=== PATIENT | male | born 1955 | race Caucasian/White ===

== ENCOUNTER 2016-11-15 18:44 | Inpatient (IN) | payer BC ==
[~2016-11-15] VITALS: Ht 172.7 cm; Wt 113.0 kg
[~2016-11-15 18:44] MED LIST: ASPEC325 PO; DOCU100T7 PO; FAMO20TA11 PO; FOSI20TA2 PO; HYDR25TA4 PO; MAGNSUS5 PO; NAPR1TAB9 PO; POTASSIUM PO; RXC5 PO
[2016-11-15] MEDS ORDERED: SODIUM CHLORIDE 0.9% 1000ML 1,000 ML IV STA ×2 (19:09→19:10)
[2016-11-15 20:03] LABS: BASO % 0.1 %; BASO ABS # 0.01 K/uL (0-0.2); COMPLETE YES; HEMATOCRIT 42.4 % (42-52); IG% 1.4 %; LYMPH % 3.2 %; LYMPH ABS # 0.37 K/uL (1.2-3.4); MEAN CORPUSCULAR HEMOGLOBIN 29.7 pg (25-34); MEAN CORPUSCULAR HGB CONC 35.4 g/dl (32-36); MONO % 4.9 %; NEUT % 90.4 %; PLATELET COUNT 106 K/uL (130-400); RED BLOOD COUNT 5.05 M/uL (4.7-6.1)
[2016-11-15 20:07] LABS: ISTAT CREATININE 1.3 mg/dl (0.6-1.3); ISTAT HEMOGLOBIN 14.3 g/dl (14.0-18.0); ISTAT IONIZED CALCIUM 1.09 mmol/l (1.12-1.32)
[2016-11-15] MEDS ORDERED: CEFTRIAXONE SOD INJ 1 GM ADDVIAL IV STA (20:08)
[2016-11-15] MEDS ORDERED: HYDROmorphone INJ 1 MG/ML SYR IV STA (20:09)
[2016-11-15 20:16] LABS: INR 1.2 (0.9-1.1); PROTHROMBIN TIME (PATIENT) 13.4 SECONDS (9.0-12.0)
[2016-11-15 20:20] LABS: BUN/CREATININE RATIO 23.5 (10-20); CALCIUM 8.7 mg/dl (8.5-10.1); CREATININE 1.3 mg/dl (0.60-1.40); MAGNESIUM 2.4 mg/dl (1.8-2.4); POTASSIUM 3.1 mmol/L (3.5-5.1)
--- NOTE | 2016-11-15 20:20 | DIAGNOSTIC IMAGING REPORT ---
CHEST ONE VIEW PORTABLE CLINICAL HISTORY: fever COMPARISON STUDY: No previous studies for comparison. FINDINGS: The heart is borderline enlarged. There are postsurgical changes of a midline sternotomy. There is no focal pulmonary consolidation. There is no failure. There are no pleural effusions. There are minor left basilar atelectatic changes.[ IMPRESSION: No active disease in the chest. Electronically signed by: Ned Mock M.D. 11/15/2016 8:18 PM Dictated Date/Time: 11/15/2016 8:18 PM
[2016-11-15 20:31] LABS: URINE APPEARANCE CLOUDY (CLEAR); URINE BILIRUBIN NEG (NEG); URINE COLOR DK YELLOW; URINE NITRITE POS (NEG); URINE SPECIFIC GRAVITY 1.019 (1.000-1.030); UROBILINOGEN NEG (NEG); ZZUR CULT IF INDIC CLEAN CATCH YES
[2016-11-15 20:33] LABS: MANUAL MICROSCOPIC REQUIRED? NO; REVIEW REQ? YES
[2016-11-15 20:45] LABS: URINE PATH CASTS 1-5 GRANULAR CASTS /lpf (0)
[2016-11-15 20:45] LABS: CKMB/CK RATIO 0.2 (0-3.0)
[2016-11-15] MEDS ORDERED: POTASSIUM CHLORIDE 10 MEQ TABCR PO STA (21:36)
--- NOTE | 2016-11-15 22:39 | EMERGENCY ROOM VISIT NOTE ---
History Report prepared by Maria Elena: Saima James Under the Supervision of: Dr. Lucian Mckeon D.O. First contact with patient: 19:02 Chief Complaint: URINARY SYMPTOMS Stated Complaint: UTI,SIGNS OF BLOOD INFEC,CHIUS,CONFUSION,VOMIT History of Present Illness The patient is a 61 year old male who presents to the Emergency Room with complaints of worsening urinary symptoms that started 2 days ago. The patient states that he got home from work 2 days ago and began to experience hematuria and burning with urination. He began to bleed from his penis and he had to wear a pad overnight. The pad was filled overnight. Currently, he is unable to start a stream and when he tries to go "it just drips." The patient experiences worsening lower abdominal pain when he tries to urinate, but nothing will come out. The last time the patient was able to urinate was around 1730 tonight, but he was only able to void a small amount. The patient's states that the patient was very confused prior to coming into the ED and couldn't find his jacket. He also tried going out of the wrong door when trying to get to the car. The patient states that he developed a low-grade fever two days ago, along with generalized shaking and sweating. He states that none of his fevers have been over 100.4. He is also experiencing a headache, nausea, and vomiting. The patient denies rhinorrhea, a new cough, chest pain, and shortness of breath. He also denies any recent trauma. The patient's most recent bowel movement was today and it was normal. Source of History: patient Onset: two days ago Position: other (bladder/urinary tract) Quality: other (urinary symptoms) Timing: worsening Associated Symptoms: + abdominal pain (lower, with urination), + fevers, + headache, + nausea, + vomiting, No SOB, No chest pain, No cough Note: generalized shaking, sweating, no rhinorrhea Review of Systems See HPI for pertinent positives & negatives. A total of 10 systems reviewed and were otherwise negative. Past Medical & Surgical Medical Problems: (1) CAD (coronary artery disease) (2) Hypertension (3) Pneumonia Surgical Problems: (1) History of lumbar discectomy (2) History of orthopedic surgery (3) History of sinus surgery (4) S/P CABG x 5 (5) Status post herniorrhaphy Family History FH: cancer FH: diabetes mellitus FH: gallbladder disease FH: heart disease FH: hypertension Social History Smoking Status: Never Smoker Alcohol Use: none Marital Status: Occupation Status: employed Current/Historical Medications Scheduled Aspirin (Aspirin), 1 TAB PO DAILY Fosinopril Sodium (Monopril), 20 MG PO QPM Hydrochlorothiazide (Hctz), 25 MG PO HS Magnesium Hydroxide (Milk Of Magnesia), 5 ML PO PRN [Potassium], 99 MG PO HS Scheduled PRN Docusate Sodium (Stool Softener), 100 MG PO QAM PRN for PRN Famotidine (Pepcid), 20 MG PO DAILY PRN for Indigestion Naproxen (Aleve), 220 MG PO QPM PRN for Pain Oxycodone HCl (Oxycodone HCl), 5-10 MG PO Q4H PRN for prn Allergies Coded Allergies: Acetaminophen (Verified Allergy, Severe, seizes bronchial tubes, 05/17/15) Adhesives (Verified Allergy, Unknown, SKIN COMES OFF, 11/15/16) Clopidogrel (Verified Allergy, Unknown, PROBLEMS WITH KNEES, SHAKEY, ) Statins (Verified Allergy, Unknown, nodules on heart, 11/15/16) Physical Exam Vital Signs Date Time Temp Pulse Resp B/P Pulse Ox O2 Delivery O2 Flow Rate FiO2 11/15/16 22:24 86 16 104/72 99 11/15/16 20:35 98 15 103/65 96 Room Air 11/15/16 19:37 97 Room Air 11/15/16 19:34 114 11/15/16 18:56 37.7 128 20 110/70 94 Room Air Physical Exam GENERAL: alert, sitting up in bed, disheveled, well appearing, well nourished, mild distress, non-toxic EYE EXAM: normal conjunctiva OROPHARYNX: no exudate, no erythema, lips, buccal mucosa, and tongue normal and mucous membranes are moist NECK: supple, no nuchal rigidity, no adenopathy, non-tender LUNGS: Clear to auscultation. Normal chest wall mechanics HEART: Tachycardic rate, no murmurs, S1 normal and S2 normal ABDOMEN: abdomen soft, non-tender, normo-active bowel sounds, no masses, no rebound or guarding. BACK: Back is symmetrical on inspection and there is no deformity, no midline tenderness, no CVA tenderness. SKIN: no rashes and no bruising UPPER EXTREMITIES: upper extremities are grossly normal. LOWER EXTREMITIES: No pitting edema. : Normal circumcised penis, testicles nontender, no appreciable masses, no penial discharge. NEURO EXAM: Normal sensorium, cranial nerves II-XII grossly intact, normal speech, no gross weakness of arms, no gross weakness of legs. Medical Decision & Procedures ER Provider Diagnostic Interpretation: Xray results per the radiologist and my interpretation. CHEST ONE VIEW PORTABLE IMPRESSION: No active disease in the chest. Electronically signed by: Ned Mock M.D. 11/15/2016 8:18 PM Dictated Date/Time: 11/15/2016 8:18 PM Laboratory Results 11/15/16 19:35 Red Blood Count 5.05, Mean Corpuscular Volume 84.0, Mean Corpuscular Hemoglobin 29.7, Mean Corpuscular Hemoglobin Concent 35.4, Mean Platelet Volume 10.0, Neutrophils (%) (Auto) 90.4, Lymphocytes (%) (Auto) 3.2, Monocytes (%) (Auto) 4.9, Eosinophils (%) (Auto) 0.0, Basophils (%) (Auto) 0.1, Neutrophils # (Auto) 10.40, Lymphocytes # (Auto) 0.37, Monocytes # (Auto) 0.56, Eosinophils # (Auto) 0.00, Basophils # (Auto) 0.01 11/15/16 19:35 Test 11/15/16 19:35 11/15/16 19:45 11/15/16 19:49 11/15/16 20:00 White Blood Count 11.50 K/uL (4.8-10.8) Red Blood Count 5.05 M/uL (4.7-6.1) Hemoglobin 15.0 g/dL (14.0-18.0) Hematocrit 42.4 % (42-52) Mean Corpuscular Volume 84.0 fL (80-100) Mean Corpuscular Hemoglobin 29.7 pg (25-34) Mean Corpuscular Hemoglobin Concent 35.4 g/dl (32-36) Platelet Count 106 K/uL (130-400) Mean Platelet Volume 10.0 fL (7.4-10.4) Neutrophils (%) (Auto) 90.4 % Lymphocytes (%) (Auto) 3.2 % Monocytes (%) (Auto) 4.9 % Eosinophils (%) (Auto) 0.0 % Basophils (%) (Auto) 0.1 % Neutrophils # (Auto) 10.40 K/uL (1.4-6.5) Lymphocytes # (Auto) 0.37 K/uL (1.2-3.4) Monocytes # (Auto) 0.56 K/uL (0.11-0.59) Eosinophils # (Auto) 0.00 K/uL (0-0.5) Basophils # (Auto) 0.01 K/uL (0-0.2) RDW Standard Deviation 45.8 fL (36.4-46.3) RDW Coefficient of Variation 14.9 % (11.5-14.5) Immature Granulocyte % (Auto) 1.4 % Immature Granulocyte # (Auto) 0.16 K/uL (0.00-0.02) Prothrombin Time 13.4 SECONDS (9.0-12.0) Prothromb Time International Ratio 1.2 (0.9-1.1) Est Creatinine Clear Calc Drug Dose 73.4 ml/min Estimated GFR () 68.3 Estimated GFR (Non- 58.9 BUN/Creatinine Ratio 23.5 (10-20) Calcium Level 8.7 mg/dl (8.5-10.1) Magnesium Level 2.4 mg/dl (1.8-2.4) Total Bilirubin 0.6 mg/dl (0.2-1) Direct Bilirubin 0.1 mg/dl (0-0.2) Aspartate Amino Transf (AST/SGOT) 57 U/L (15-37) Alanine Aminotransferase (ALT/SGPT) 33 U/L (12-78) Alkaline Phosphatase 90 U/L (45-117) Total Creatine Kinase 1611 U/L (39-308) Creatine Kinase MB 2.5 ng/ml (0.5-3.6) Creatine Kinase MB Ratio 0.2 (0-3.0) Troponin I 0.080 ng/ml (0-0.045) Total Protein 6.5 gm/dl (6.4-8.2) Albumin 3.0 gm/dl (3.4-5.0) Bedside Lactic Acid Venous 3.31 mmol/L (0.90-1.70) Bedside Hemoglobin 14.3 g/dl (14.0-18.0) Bedside Hematocrit 42 % (42-52) Bedside Sodium 137 mEq/L (135-144) Bedside Potassium 3.0 mEq/L (3.3-5.0) Bedside Chloride 96 mEq/L (101-112) Bedside Total CO2 23 mEq/l (24-31) Anion Gap 21.0 mmol/L (16-25) Bedside Blood Urea Nitrogen 29 mg/dl (7-18) Bedside Creatinine 1.3 mg/dl (0.6-1.3) Bedside Glucose (other) 155 mg/dl (70-99) Bedside Ionized Calcium (Meño) 1.09 mmol/l (1.12-1.32) Urine Color DK YELLOW Urine Appearance CLOUDY (CLEAR) Urine pH 5.0 (4.5-7.5) Urine Specific [place] 1.019 (1.000-1.030) Urine Protein 2+ (NEG) Urine Glucose (UA) NEG (NEG) Urine Ketones TRACE (NEG) Urine Occult Blood 3+ (NEG) Urine Nitrite POS (NEG) Urine Bilirubin NEG (NEG) Urine Urobilinogen NEG (NEG) Urine Leukocyte Esterase MODERATE (NEG) Urine WBC (Auto) >30 /hpf (0-5) Urine RBC (Auto) 5-10 /hpf (0-4) Urine Hyaline Casts (Auto) 1-5 /lpf (0-5) Urine Epithelial Cells (Auto) 10-20 /lpf (0-5) Urine Bacteria (Auto) 4+ (NEG) Urine Pathogenic Casts 1-5 GRANULAR CASTS /lpf (0) Laboratory results per my review. Medications Administered Medications (Trade) Dose Ordered Sig/[place] Route Start Time Stop Time Status Last Admin Dose Admin Sodium Chloride 1,000 ml @ 999 mls/hr Q1H1M STAT IV 11/15/16 19:09 11/15/16 20:09 DC 11/15/16 20:09 999 MLS/HR Sodium Chloride (Nss 1000ml) 1,000 ml @ 999 mls/hr Q1H1M STAT IV 11/15/16 19:10 11/15/16 20:10 DC 11/15/16 20:30 999 MLS/HR Ceftriaxone Sodium (Rocephin Inj) 1 gm NOW STAT IV 11/15/16 20:08 11/15/16 20:09 DC 11/15/16 20:30 1 GM Hydromorphone HCl (Dilaudid Inj) 1 mg NOW STAT IV 11/15/16 20:09 11/15/16 20:10 DC 11/15/16 20:30 1 MG Potassium Chloride (Klor-Con M10) 40 meq NOW STAT PO 11/15/16 21:36 11/15/16 21:37 DC 11/15/16 21:57 40 MEQ ECG Indication: nausea, tachycardia Rate (beats per minute): 114 Rhythm: sinus tachycardia Findings: RBBB, left axis deviation ED Course ED COURSE: Vital signs were reviewed and showed tachycardia. The patients medical record was reviewed The above diagnostic studies were performed and reviewed. ED treatments and interventions as stated above. 1902: The patient was evaluated in room A4. A complete history and physical examination was performed. 1908: Ordered Sodium Chloride 1000 ml @ 999 mls/hr IV 1909: Ordered Sodium Chloride 1000 ml @ 999 mls/hr IV 2007: Ordered Rocephin Inj 1 gm IV 2008: Ordered Dilaudid 1 mg IV 2049: Upon reevaluation, the patient is resting comfortably. I discussed my findings with the patient and his . They understand and agree with the treatment plan. Based on the patients age, coexisting illnesses, exam and lab findings the decision to treat as an inpatient was made. The patient remained stable while under my care. The patient will be evaluated for further management. 2133: I reviewed the patient's case with Dr. Kaleb Panchal [facility]. He will evaluate the patient for further management. 2135: Ordered Potassium Chloride 40 meq PO Medical Decision Differential diagnosis includes etiologies such as sepsis, UTI, pneumonia, metabolic, electrolyte abnormalities, cardiac sources, intracerebral event, toxicologic, neurologic, as well as others were entertained. Patient is a 61-year-old male who presents the ER for fevers, chills and altered mental status at home. He notes he has been having dysuria, urgency and frequency. He notes extreme pain with urination. Mild leukocytosis of 11.5 thousand. BMP was remarkable for a potassium of 3.1. Creatinine was unremarkable. Lactate was 3.3. Troponin was elevated at 0.08. INR was unremarkable. UA had nitrates esterase, white cells and bacteria. Based on symptoms he is given a dose of Rocephin. He was given 2 L normal saline. He was also given Dilaudid with improvement of his pain. Patient no other complaints and was noted to internal medicine with sepsis secondary to UTI. I do favor the elevations in troponin is likely secondary to demand ischemia from sepsis. Heart rate returned down from the 120s to 90s following the bolus normal saline. Consults Time Called: 2052 Consulting Physician: Dr. Kaleb MEZA Returned Call: [phone] I reviewed the patient's case with Dr. Kaleb MEZA. He will evaluate the patient for further management. Impression Primary Impression: Sepsis Additional Impressions: UTI (urinary tract infection) Hypokalemia Elevated troponin I level Scribe Attestation The scribe's documentation has been prepared under my direction and personally reviewed by me in its entirety. I confirm that the note above accurately reflects all work, treatment, procedures, and medical decision making performed by me. Departure Information Dispostion Being Evaluated By Hospitalist Referrals Nory Church M.D. (PCP) Patient Instructions My [facility] Problem Qualifiers Primary Impression: Sepsis Sepsis type: sepsis due to unspecified organism Qualified Codes: A41.9 - Sepsis, unspecified organism Additional Impressions: UTI (urinary tract infection) Urinary tract infection type: site unspecified Hematuria presence: with hematuria Qualified Codes: N39.0 - Urinary tract infection, site not specified ; R31.9 - Hematuria, unspecified
[2016-11-15] MEDS ORDERED: HYDROmorphone INJ 1 MG/ML SYR IV PRN (22:45)
[2016-11-15] MEDS ORDERED: ZOLPIDEM TARTRATE 5 MG TAB PO PRN (22:45)
[2016-11-15] MEDS ORDERED: ONDANSETRON INJ 2 MG/ML 2 ML VIAL IV PRN (22:45)
[2016-11-15] MEDS ORDERED: HYDROmorphone INJ 0.5 MG/0.5 ML SYR IV PRN (22:45)
[2016-11-15 23:30] VITALS: BP 111/70; PULSE 79; TEMP 36.9; O2SAT 99; Ht 172.7 cm; Wt 113.0 kg
[2016-11-16 00:09] LABS: CKMB/CK RATIO 0.2 (0-3.0)
[2016-11-16] MEDS ORDERED: NSS + 20MEQ KCL 1000ML 1,000 ML IV SCH (01:30)
[2016-11-16] MEDS ORDERED: TAMSULOSIN HCL 0.4 MG CAP PO STA (03:43)
--- NOTE | 2016-11-16 03:49 | History and Physical ---
History & Physical Date & Time of Service: Nov 16, 2016 at 03:28 Chief Complaint: Bph With Obstruction/Lower Urinary Tract Symptoms, Primary Care Physician: Nory Church M.D. History of Present Illness Source: patient, spouse Patient is a 61-year-old male presents to the emergency department with complaint of increased urinary frequency, urinating blood, decreased volume of urination, and worsening pelvic and suprapubic pain over the past 48 hours. He reported that he has had flu overnight. His reports that the patient had become very confused earlier in the day, not being able to find his jacket, and going out the wrong door trying to get to the car. His symptoms began 48 hours ago with a low-grade fever to max 100.4, generalized shaking, chills and sweating. He more recently developed a headache with nausea and vomiting. He has not had any recent travels, and has not had any sick exposures. He does drink 2 servings of caffeine daily and takes a decongestant daily. He does not have a history of kidney stones nor family history Past Medical/Surgical History Medical Problems: (1) CAD (coronary artery disease) Status: Chronic (2) Hypertension Status: Chronic (3) Pneumonia Status: Resolved Surgical Problems: (1) History of lumbar discectomy Status: Resolved (2) History of orthopedic surgery Status: Resolved (3) History of sinus surgery Status: Resolved (4) S/P CABG x 5 Status: Resolved (5) Status post herniorrhaphy Status: Resolved Family History FH: cancer FH: diabetes mellitus FH: gallbladder disease FH: heart disease FH: hypertension Social History Smoking Status: Never Smoker Smokeless Tobacco Use: No Alcohol Use: none Drug Use: none Marital Status: Housing status: lives with family Occupational Status: employed Multi-Drug Resistant Organisms History of MDRO: No Allergies Coded Allergies: Acetaminophen (Verified Allergy, Severe, seizes bronchial tubes, 05/17/15) Adhesives (Verified Allergy, Unknown, SKIN COMES OFF, 11/15/16) Clopidogrel (Verified Allergy, Unknown, PROBLEMS WITH KNEES, SHAKEY, ) Statins (Verified Allergy, Unknown, nodules on heart, 11/15/16) Home Medications Scheduled Aspirin (Aspirin), 1 TAB PO DAILY Fosinopril Sodium (Monopril), 20 MG PO QPM Hydrochlorothiazide (Hctz), 25 MG PO HS Magnesium Hydroxide (Milk Of Magnesia), 5 ML PO PRN [Potassium], 99 MG PO HS Scheduled PRN Docusate Sodium (Stool Softener), 100 MG PO QAM PRN for PRN Famotidine (Pepcid), 20 MG PO DAILY PRN for Indigestion Naproxen (Aleve), 220 MG PO QPM PRN for Pain Oxycodone HCl (Oxycodone HCl), 5-10 MG PO Q4H PRN for prn Review of Systems The patient denies chest pain, palpitations, shortness of breath, cough, lower extremity swelling, vision change, hearing change, sore throat, weight change, fatigue,abdominal pain, pelvic pain, blood in stool, rash, abnormal bruising , imbalance, focal weakness, numbness or tingling in arms or legs, arthralgias or myalgias, back or neck pain, or allergy symptoms. The review of systems is otherwise negative other than for that already noted above, and at least 10 systems have been reviewed. Physical Exam Vital Signs Date Time Temp Pulse Resp B/P Pulse Ox O2 Delivery O2 Flow Rate FiO2 11/15/16 23:30 36.9 79 18 111/70 99 Room Air 11/15/16 22:24 86 16 104/72 99 11/15/16 20:35 98 15 103/65 96 Room Air 11/15/16 19:37 97 Room Air 11/15/16 19:34 114 11/15/16 18:56 37.7 128 20 110/70 94 Room Air The patient is awake, well-developed and adequately nourished, alert and oriented 3, normocephalic and atraumatic, lying in bed and in no acute distress. HEENT--PERRL, EOMI, mucous membranes and oropharynx dry, janet appearing facial skin. Neck--supple, no JVD or bruits, thyroid normal, trachea midline, no adenopathy. Heart--normal S1 and S2, no extra beats, no murmurs, rubs or gallops. Lungs--clear bilaterally with good air movement, no respiratory distress, no accessory muscle use. Abdomen--normal bowel sounds and soft, nontender and nondistended, no hernias or masses, no organomegaly. Extremities--no cyanosis, clubbing or edema. There are good distal pulses b/l. Dermatologic--normal skin turgor, normal color, warm and dry, no abnormal lymph nodes, no rash. Neurologic--cranial nerves II through XII grossly intact, motor and sensory examination normal. Rheumatologic--normal range of motion, nontender, muscles and joints. Psychiatric--normal affect. Diagnostics Laboratory Results Results Past 24 Hours Test 11/15/16 19:35 11/15/16 19:45 11/15/16 19:49 11/15/16 20:00 Range/Units White Blood Count 11.50 4.8-10.8 K/uL Red Blood Count 5.05 4.7-6.1 M/uL Hemoglobin 15.0 14.0-18.0 g/dL Hematocrit 42.4 42-52 % Mean Corpuscular Volume 84.0 80-100 fL Mean Corpuscular Hemoglobin 29.7 25-34 pg Mean Corpuscular Hemoglobin Concent 35.4 32-36 g/dl Platelet Count 106 130-400 K/uL Mean Platelet Volume 10.0 7.4-10.4 fL Neutrophils (%) (Auto) 90.4 % Lymphocytes (%) (Auto) 3.2 % Monocytes (%) (Auto) 4.9 % Eosinophils (%) (Auto) 0.0 % Basophils (%) (Auto) 0.1 % Neutrophils # (Auto) 10.40 1.4-6.5 K/uL Lymphocytes # (Auto) 0.37 1.2-3.4 K/uL Monocytes # (Auto) 0.56 0.11-0.59 K/uL Eosinophils # (Auto) 0.00 0-0.5 K/uL Basophils # (Auto) 0.01 0-0.2 K/uL RDW Standard Deviation 45.8 36.4-46.3 fL RDW Coefficient of Variation 14.9 11.5-14.5 % Immature Granulocyte % (Auto) 1.4 % Immature Granulocyte # (Auto) 0.16 0.00-0.02 K/uL Prothrombin Time 13.4 9.0-12.0 SECONDS Prothromb Time International Ratio 1.2 0.9-1.1 Sodium Level 138 136-145 mmol/L Potassium Level 3.1 3.5-5.1 mmol/L Chloride Level 101 98-107 mmol/L Carbon Dioxide Level 27 21-32 mmol/L Anion Gap 10.0 21.0 16-25 mmol/L Blood Urea Nitrogen 31 7-18 mg/dl Creatinine 1.30 0.60-1.40 mg/dl Est Creatinine Clear Calc Drug Dose 73.4 ml/min Estimated GFR () 68.3 Estimated GFR (Non- 58.9 BUN/Creatinine Ratio 23.5 10-20 Random Glucose 152 70-99 mg/dl Calcium Level 8.7 8.5-10.1 mg/dl Magnesium Level 2.4 1.8-2.4 mg/dl Total Bilirubin 0.6 0.2-1 mg/dl Direct Bilirubin 0.1 0-0.2 mg/dl Aspartate Amino Transf (AST/SGOT) 57 15-37 U/L Alanine Aminotransferase (ALT/SGPT) 33 12-78 U/L Alkaline Phosphatase 90 45-117 U/L Total Creatine Kinase 1611 39-308 U/L Creatine Kinase MB 2.5 0.5-3.6 ng/ml Creatine Kinase MB Ratio 0.2 0-3.0 Troponin I 0.080 0-0.045 ng/ml Total Protein 6.5 6.4-8.2 gm/dl Albumin 3.0 3.4-5.0 gm/dl Bedside Lactic Acid Venous 3.31 0.90-1.70 mmol/L Bedside Hemoglobin 14.3 14.0-18.0 g/dl Bedside Hematocrit 42 42-52 % Bedside Sodium 137 135-144 mEq/L Bedside Potassium 3.0 3.3-5.0 mEq/L Bedside Chloride 96 101-112 mEq/L Bedside Total CO2 23 24-31 mEq/l Bedside Blood Urea Nitrogen 29 7-18 mg/dl Bedside Creatinine 1.3 0.6-1.3 mg/dl Bedside Glucose (other) 155 70-99 mg/dl Bedside Ionized Calcium (Meño) 1.09 1.12-1.32 mmol/l Urine Color DK YELLOW Urine Appearance CLOUDY CLEAR Urine pH 5.0 4.5-7.5 Urine Specific [place] 1.019 1.000-1.030 Urine Protein 2+ NEG Urine Glucose (UA) NEG NEG Urine Ketones TRACE NEG Urine Occult Blood 3+ NEG Urine Nitrite POS NEG Urine Bilirubin NEG NEG Urine Urobilinogen NEG NEG Urine Leukocyte Esterase MODERATE NEG Urine WBC (Auto) >30 0-5 /hpf Urine RBC (Auto) 5-10 0-4 /hpf Urine Hyaline Casts (Auto) 1-5 0-5 /lpf Urine Epithelial Cells (Auto) 10-20 0-5 /lpf Urine Bacteria (Auto) 4+ NEG Urine Pathogenic Casts 1-5 GRANULAR CASTS 0 /lpf Test 11/15/16 23:10 Range/Units Total Creatine Kinase 1668 39-308 U/L Creatine Kinase MB 4.0 0.5-3.6 ng/ml Creatine Kinase MB Ratio 0.2 0-3.0 Troponin I 0.109 0-0.045 ng/ml Microbiology Results 11/15/16 Blood Culture, Received Pending 11/15/16 Blood Culture, Received Pending 11/15/16 Urine Culture, Received Pending Diagnostic Radiology Patient Name: JM HARTMANN Unit Number: [id number] Dictated: 11/15/162017 Transcribed: 11/15/162017 ARG Printed Date/Time: [~ rep prt dt]/[~ rep prt tm] [~ rep ct labl] - [~ rep ct ivnm] [facility] Radiology Department [place] [id number] Dictated: 11/15/162017 Transcribed: 11/15/162017 ARG Printed Date/Time: [~ rep prt dt]/[~ rep prt tm] [~ rep ct labl] - [~ rep ct ivnm] CHEST ONE VIEW PORTABLE CLINICAL HISTORY: fever COMPARISON STUDY: No previous studies for comparison. FINDINGS: The heart is borderline enlarged. There are postsurgical changes of a midline sternotomy. There is no focal pulmonary consolidation. There is no failure. There are no pleural effusions. There are minor left basilar atelectatic changes.[ IMPRESSION: No active disease in the chest. Electronically signed by: Ned Mock M.D. 11/15/2016 8:18 PM Dictated Date/Time: 11/15/2016 8:18 PM The status of this report is Signed. Draft = Not yet reviewed or approved by Radiologist. Signed = Reviewed and approved by Radiologist. <AttendingPhy></AttendingPhy> <FamilyPhy>Nory Church M.D.</FamilyPhy> < PrimaryPhy>Nory Church M.D.</PrimaryPhy> <UnitNumber>[id number]</ UnitNumber> <VisitNumber>[id number]</VisitNumber> <PatientName>JM HARTMANN</PatientName> <DateOfBirth>1955</DateOfBirth> <Location>[facility]</ Location> <ServiceDate>11/15/16</ServiceDate> <MNE>ESINDI</MNE> <OrderingPhy> Lucian Mckeon Katarzyna DO</OrderingPhy> <OrderingPhyMNE>f rep ord dr medina</OrderingPhyMNE > <DictatingPhyMNE>f rep dict dr medina</DictatingPhyMNE> <CCListMNE>f rep ct mne</ CCListMNE> <AdmittingPhyMNE>f pt admit dr medina</AdmittingPhyMNE> <AttendingPhyMNE >f pt attend dr medina</AttendingPhyMNE> <ConsultingPhyMNE>f pt consult dr medina</ConsultingPhyMNE> <FamilyPhyMNE>f pt fam dr medina</FamilyPhyMNE> <OtherPhyMNE>f pt other dr medina</OtherPhyMNE> < PrimaryPhyMNE>f pt prim care dr medina</PrimaryPhyMNE> <ReferringPhyMNE>f pt referring dr medina</ReferringPhyMNE> EKG EKG shows sinus tachycardia 114 bpm, right bundle branch block, left anterior fascicular block, no acute ST-T changes. Impression Assessment and Plan BPH with bladder outlet obstruction--the patient will be admitted to the medical floor. He'll be started on tamsulosin 0.4 mg by mouth at bedtime with first dose tonight, ceftriaxone 1 g IV daily, Dilaudid 0.5-1 mg IV every 2 hours when necessary pain or urinary retention, pantoprazole 40 mg IV daily, and Zofran 4 mg IV every 6 hours when necessary. We'll consult urology to see patient in the a.m. We'll follow urine culture and sensitivity results. Elevated troponin/Hypertension/status post CABG 5/hypokalemia--hold HCTZ 25 mg by mouth at bedtime, aspirin daily, and Monopril 20 mg by mouth every afternoon. Admitted to the telemetry unit, for serial cardiac enzymes, cardiac rhythm monitoring and a 2-D echocardiogram with Dopplers. We'll start metoprolol tartrate 25 mg by mouth twice a day. Level of Care Med/Surg Advanced Directives Existing Advance Directive: No Existing Living Will: No Existing Power of Corrections Sergeant: No Resuscitation Status FULL RESUSCITATION VTE Prophylaxis VTE Risk Assessment Done? Y/N: Yes Risk Level: Moderate Given or contraindicated: SCD's Social Service Consult None Apply
[2016-11-16 04:00] VITALS: BP 128/89; PULSE 82; TEMP 36.8; O2SAT 100
[2016-11-16 07:00] LABS: HEMATOCRIT 39.3 % (42-52); MEAN CELL VOLUME 84.3 fL (80-100); MEAN CORPUSCULAR HEMOGLOBIN 29.4 pg (25-34); MEAN CORPUSCULAR HGB CONC 34.9 g/dl (32-36); RED BLOOD COUNT 4.66 M/uL (4.7-6.1); WHITE BLOOD COUNT 10.26 K/uL (4.8-10.8)
[2016-11-16 07:21] VITALS: BP 120/77; PULSE 89; TEMP 36.7; O2SAT 96
[2016-11-16 07:33] LABS: BUN/CREATININE RATIO 25.1 (10-20); CALCIUM 8.2 mg/dl (8.5-10.1); CREATININE 0.94 mg/dl (0.60-1.40); MAGNESIUM 2.4 mg/dl (1.8-2.4); POTASSIUM 3.6 mmol/L (3.5-5.1)
[2016-11-16 07:44] LABS: CKMB/CK RATIO 0.3 (0-3.0)
[2016-11-16 07:48] LABS: BASO % 0.1 %; BASO ABS # 0.01 K/uL (0-0.2); COMPLETE YES; EOS % 0.1 %; IG% 0.5 %; LYMPH % 5.8 %; MEAN PLATELET VOLUME 9.8 fL (7.4-10.4); MONO % 6.1 %; NEUT % 87.4 %; PLATELET COUNT 85 K/uL (130-400)
[2016-11-16] MEDS ORDERED: INFLUENZA ADMINISTRATION CHARGE ONE (08:00)
[2016-11-16] MEDS ORDERED: INFLUENZA VIRUS QUAD VACCINE 0.5 ML SYR IM. ONE (08:00)
[2016-11-16] MEDS ORDERED: METOPROLOL TARTRATE 25 MG TAB PO SCH (09:00)
[2016-11-16] MEDS ORDERED: LISINOPRIL 20 MG TAB PO STA (10:57)
[2016-11-16] MEDS ORDERED: PANTOprazole INJ 40 MG in SYRINGE 0 ML IV SCH (11:00)
[2016-11-16] MEDS ORDERED: MAGNESIUM HYDROXIDE SUSP 30 ML UDC PO STA (11:02)
[2016-11-16 11:20] VITALS: BP 92/56; PULSE 88; TEMP 36.6; O2SAT 97
--- NOTE | 2016-11-16 12:34 | Urology Consultation ---
History General Date of Service: Nov 16, 2016. Chief Complaint: complicated uti Primary Care Physician: Nory Church M.D. Pt seen a urologist before?: No History of Present Illness I am asked by Dr Manuel to evaluate and treat patient for complicated UTI. He has had dysuria and fevers and chills for 2 days. He then got confused. He had been seen at a [facility] (yesterday) and had a urine culture sent and was given an IM injection of rocephin. He has urinary frequency, weak urinary stream and dysuria. He also had blood per urethra. Today he also has perineal / prostate pain. He was admitted via ER. He has normal creat, elevated lactic acid, and a slgith elevated white count of 11 which has normalized overnight. Selena has has low grade temps. He is on rocephin. Laboratory Results Past 24 Hours Test 11/15/16 19:35 11/15/16 19:45 11/15/16 19:49 11/15/16 20:00 Range/Units White Blood Count 11.50 4.8-10.8 K/uL Red Blood Count 5.05 4.7-6.1 M/uL Hemoglobin 15.0 14.0-18.0 g/dL Hematocrit 42.4 42-52 % Mean Corpuscular Volume 84.0 80-100 fL Mean Corpuscular Hemoglobin 29.7 25-34 pg Mean Corpuscular Hemoglobin Concent 35.4 32-36 g/dl Platelet Count 106 130-400 K/uL Mean Platelet Volume 10.0 7.4-10.4 fL Neutrophils (%) (Auto) 90.4 % Lymphocytes (%) (Auto) 3.2 % Monocytes (%) (Auto) 4.9 % Eosinophils (%) (Auto) 0.0 % Basophils (%) (Auto) 0.1 % Neutrophils # (Auto) 10.40 1.4-6.5 K/uL Lymphocytes # (Auto) 0.37 1.2-3.4 K/uL Monocytes # (Auto) 0.56 0.11-0.59 K/uL Eosinophils # (Auto) 0.00 0-0.5 K/uL Basophils # (Auto) 0.01 0-0.2 K/uL RDW Standard Deviation 45.8 36.4-46.3 fL RDW Coefficient of Variation 14.9 11.5-14.5 % Immature Granulocyte % (Auto) 1.4 % Immature Granulocyte # (Auto) 0.16 0.00-0.02 K/uL Prothrombin Time 13.4 9.0-12.0 SECONDS Prothromb Time International Ratio 1.2 0.9-1.1 Sodium Level 138 136-145 mmol/L Potassium Level 3.1 3.5-5.1 mmol/L Chloride Level 101 98-107 mmol/L Carbon Dioxide Level 27 21-32 mmol/L Anion Gap 10.0 21.0 16-25 mmol/L Blood Urea Nitrogen 31 7-18 mg/dl Creatinine 1.30 0.60-1.40 mg/dl Est Creatinine Clear Calc Drug Dose 73.4 ml/min Estimated GFR () 68.3 Estimated GFR (Non- 58.9 BUN/Creatinine Ratio 23.5 10-20 Random Glucose 152 70-99 mg/dl Calcium Level 8.7 8.5-10.1 mg/dl Magnesium Level 2.4 1.8-2.4 mg/dl Total Bilirubin 0.6 0.2-1 mg/dl Direct Bilirubin 0.1 0-0.2 mg/dl Aspartate Amino Transf (AST/SGOT) 57 15-37 U/L Alanine Aminotransferase (ALT/SGPT) 33 12-78 U/L Alkaline Phosphatase 90 45-117 U/L Total Creatine Kinase 1611 39-308 U/L Creatine Kinase MB 2.5 0.5-3.6 ng/ml Creatine Kinase MB Ratio 0.2 0-3.0 Troponin I 0.080 0-0.045 ng/ml Total Protein 6.5 6.4-8.2 gm/dl Albumin 3.0 3.4-5.0 gm/dl Bedside Lactic Acid Venous 3.31 0.90-1.70 mmol/L Bedside Hemoglobin 14.3 14.0-18.0 g/dl Bedside Hematocrit 42 42-52 % Bedside Sodium 137 135-144 mEq/L Bedside Potassium 3.0 3.3-5.0 mEq/L Bedside Chloride 96 101-112 mEq/L Bedside Total CO2 23 24-31 mEq/l Bedside Blood Urea Nitrogen 29 7-18 mg/dl Bedside Creatinine 1.3 0.6-1.3 mg/dl Bedside Glucose (other) 155 70-99 mg/dl Bedside Ionized Calcium (Meño) 1.09 1.12-1.32 mmol/l Urine Color DK YELLOW Urine Appearance CLOUDY CLEAR Urine pH 5.0 4.5-7.5 Urine Specific [place] 1.019 1.000-1.030 Urine Protein 2+ NEG Urine Glucose (UA) NEG NEG Urine Ketones TRACE NEG Urine Occult Blood 3+ NEG Urine Nitrite POS NEG Urine Bilirubin NEG NEG Urine Urobilinogen NEG NEG Urine Leukocyte Esterase MODERATE NEG Urine WBC (Auto) >30 0-5 /hpf Urine RBC (Auto) 5-10 0-4 /hpf Urine Hyaline Casts (Auto) 1-5 0-5 /lpf Urine Epithelial Cells (Auto) 10-20 0-5 /lpf Urine Bacteria (Auto) 4+ NEG Urine Pathogenic Casts 1-5 GRANULAR CASTS 0 /lpf Test 11/15/16 23:10 11/16/16 06:45 Range/Units Total Creatine Kinase 1668 1338 39-308 U/L Creatine Kinase MB 4.0 3.8 0.5-3.6 ng/ml Creatine Kinase MB Ratio 0.2 0.3 0-3.0 Troponin I 0.109 0.037 0-0.045 ng/ml White Blood Count 10.26 4.8-10.8 K/uL Red Blood Count 4.66 4.7-6.1 M/uL Hemoglobin 13.7 14.0-18.0 g/dL Hematocrit 39.3 42-52 % Mean Corpuscular Volume 84.3 80-100 fL Mean Corpuscular Hemoglobin 29.4 25-34 pg Mean Corpuscular Hemoglobin Concent 34.9 32-36 g/dl Platelet Count 85 130-400 K/uL Mean Platelet Volume 9.8 7.4-10.4 fL Neutrophils (%) (Auto) 87.4 % Lymphocytes (%) (Auto) 5.8 % Monocytes (%) (Auto) 6.1 % Eosinophils (%) (Auto) 0.1 % Basophils (%) (Auto) 0.1 % Neutrophils # (Auto) 8.96 1.4-6.5 K/uL Lymphocytes # (Auto) 0.60 1.2-3.4 K/uL Monocytes # (Auto) 0.63 0.11-0.59 K/uL Eosinophils # (Auto) 0.01 0-0.5 K/uL Basophils # (Auto) 0.01 0-0.2 K/uL RDW Standard Deviation 47.0 36.4-46.3 fL RDW Coefficient of Variation 15.2 11.5-14.5 % Immature Granulocyte % (Auto) 0.5 % Immature Granulocyte # (Auto) 0.05 0.00-0.02 K/uL Sodium Level 142 136-145 mmol/L Potassium Level 3.6 3.5-5.1 mmol/L Chloride Level 106 98-107 mmol/L Carbon Dioxide Level 29 21-32 mmol/L Anion Gap 7.0 3-11 mmol/L Blood Urea Nitrogen 24 7-18 mg/dl Creatinine 0.94 0.60-1.40 mg/dl Est Creatinine Clear Calc Drug Dose 100.7 ml/min Estimated GFR () 101.0 Estimated GFR (Non- 87.2 BUN/Creatinine Ratio 25.1 10-20 Random Glucose 111 70-99 mg/dl Calcium Level 8.2 8.5-10.1 mg/dl Magnesium Level 2.4 1.8-2.4 mg/dl Microbiology Results 11/15/16 Blood Culture, Received Pending 11/15/16 Blood Culture, Received Pending 11/15/16 Urine Culture, Received Pending Labs were reviewed and are within normal limits unless listed below. Labs are available in the chart and at [facility] Problem List Medical Problems: (1) CAD (coronary artery disease) Status: Chronic (2) Hypertension Status: Chronic (3) Hypokalemia Status: Acute (4) Sepsis Status: Acute (5) UTI (urinary tract infection) Status: Acute Past History arthritis, chronic back pain, coronary artery disease, GERD, heart disease, high cholesterol, previous fracture Pt had a problem w anesthesia?: No Past Surgical History: coronary bypass surgery, orthopedic surgery (has had 2 right sholder surgeries, left ankle reconstruction), tonsillectomy, other ( inguinal hernia reapir) Family History FH: cancer FH: diabetes mellitus FH: gallbladder disease FH: heart disease FH: hypertension Social History Hx Tobacco Use In Past Year?: No Smoking: non-smoker Alcohol: never Drug use: none Marital status: Housing status: lives with family Occupation status: employed ([employer]) History of MDRO No Allergies Coded Allergies: Acetaminophen (Verified Allergy, Severe, seizes bronchial tubes, 05/17/15) Adhesives (Verified Allergy, Unknown, SKIN COMES OFF, 11/15/16) Clopidogrel (Verified Allergy, Unknown, PROBLEMS WITH KNEES, SHAKEY, ) Statins (Verified Allergy, Unknown, nodules on heart, 11/15/16) Medications Home Medications: Home Meds and Scripts Medications Dose Route/Sig Max Daily Dose Days Date Category Oxycodone HCl 5 Mg Tab 5-10 Mg PO Q4H PRN 05/17/15 Rx Aspirin 325 Mg Ectab 1 Tab PO DAILY 14 05/17/15 Rx Pepcid (Famotidine) 20 Mg Tab 20 Mg PO DAILY PRN 05/05/15 Reported Aleve (Naproxen) 220 Mg Tab 220 Mg PO QPM PRN 05/05/15 Reported Hctz (Hydrochlorothiazide) 25 Mg Tab 25 Mg PO HS 04/16/15 Reported Milk Of Magnesia (Magnesium Hydroxide) 30 Ml Susp 5 Ml PO PRN 04/16/15 Reported Stool Softener (Docusate Sodium) 100 Mg Tab 100 Mg PO QAM PRN 04/16/15 Reported [Potassium] 99 Mg PO HS 04/16/15 Reported Monopril (Fosinopril Sodium) 20 Mg Tab 20 Mg PO QPM 04/16/15 Reported Inpatient Medications: Current Inpatient Medications Medications (Trade) Dose Ordered Sig/Shiloh Route Start Time Stop Time Status Last Admin Dose Admin Potassium Chloride/Sodium Chloride (Nss + 20meq KCl 1000ml) 1,000 ml @ 80 mls/hr [id number] IV 11/16/16 01:30 12/16/16 01:29 11/16/16 01:47 40 MLS/HR Zolpidem Tartrate (Ambien Tab) 5 mg HSZ PRN PO 11/15/16 22:45 12/15/16 22:44 Ondansetron HCl (Zofran Inj) 4 mg Q6H PRN IV 11/15/16 22:45 12/15/16 22:44 Hydromorphone HCl (Dilaudid Inj) 1 mg Q2H PRN IV 11/15/16 22:45 11/29/16 22:44 11/16/16 04:13 1 MG Hydromorphone HCl 0.5 mg 0.5 mg Q2H PRN IV 11/15/16 22:45 11/29/16 22:44 Pantoprazole Sodium 40 mg/ Syringe 10 ml @ 5 mls/min DAILY@11 IV 11/16/16 11:00 12/16/16 10:59 11/16/16 11:18 5 MLS/MIN Ceftriaxone Sodium/Dextrose (Rocephin Inj/ Dextrose Add-[place]utz 50ML) 50 ml @ 100 mls/hr Q24H IV 11/16/16 20:00 11/26/16 19:59 Tamsulosin HCl (Flomax Cap) 0.4 mg HS PO 11/16/16 21:00 12/16/16 20:59 Lisinopril (Zestril Tab) 20 mg QPM PO 11/16/16 21:00 12/16/16 20:59 Magnesium Hydroxide (Milk Of Magnesia Susp) 30 ml QAM PO 11/17/16 09:00 12/17/16 08:59 Review of Systems Review of Systems Constitutional: + chills, + fever Eyes: + blurred vision Neurological: + dizzy Endocrine: + tired/sluggish, + too cold Gastrointestinal: + abdominal pain, + constipation (he is chronically constipated and takes daily stool softener and milk of magnesia), + indigestion , + nausea, + vomiting Cardiovascular: No angina, No chest pain, No palpitations, No swelling ankles/ feet Respiratory: No chronic cough, No shortness of breath, No wheezing Skin: No rash Musculoskeletal: + arthritis Male : + blood in urine, + frequent urination, + infections, + nocturia more than once/night, + weak stream Physical Exam Vital Signs: Vital Signs Past 12 Hours Date Time Temp Pulse Resp B/P Pulse Ox O2 Delivery O2 Flow Rate FiO2 11/16/16 11:20 36.6 88 16 92/56 97 11/16/16 08:00 Room Air 11/16/16 07:21 36.7 89 16 120/77 96 Room Air 11/16/16 04:05 Room Air 11/16/16 04:00 36.8 82 20 128/89 100 Room Air Physical Exam: General Appearance: WD/WN, no apparent distress, + obese Eyes: bilateral eyes normal inspection ENT: hearing grossly normal Neck: supple, no adenopathy, no JVD, trachea midline Respiratory/Chest: no accessory muscle use Gastrointestinal: Abdomen: normal abdomen Bladder: normal bladder Renal: normal renal Hernia: absent hernia Genitourinary - Male: Penis: normal penis, circumcised Urethral Meatus: normal urethral meatus Testes: normal testes Epididymides: normal epididymides Prostate: pertinent finding (AZALIA deferred due to current infection and prostate pain) Extremities: non-tender, normal inspection, no pedal edema, no calf tenderness , normal capillary refill Neurologic/Psychiatric: alert, normal mood/affect, oriented x 3 Skin: normal color, warm/dry, no rash Lymphatic: no adenopathy Assessment & Plan Assessment & Plan febrile cystitis possibly prostatitis no plan for any instrumentation during this acute infection. He needs a non contrast ct abd and pelvis now or as outpatient to r/u stone as source of uti We await culture data to decide on abt will need 10-14 days course. The [facility] culture will probably come back first and his will try to get them to fax result to us. Agree with flomax. If prostate looks large on ct will also add finasteride. He is emptying well enough. His irritative symptoms and stream will improve with antibiotics. He would prefer to be followed at [place] office as O/P He may eat and drink normally, no procedure planned this admission. He will have cysto as outpatient after this current infection clears
[2016-11-16 15:23] LABS: CKMB/CK RATIO 0.2 (0-3.0)
[2016-11-16 15:30] VITALS: BP 123/75; PULSE 106; TEMP 37.3; O2SAT 98
--- NOTE | 2016-11-16 15:34 | DIAGNOSTIC IMAGING REPORT ---
CT SCAN OF THE ABDOMEN AND PELVIS WITHOUT IV CONTRAST CLINICAL HISTORY: Generalized abdominal pain. Urinary tract infection. COMPARISON STUDY: No priors. TECHNIQUE: CT scan of the abdomen and pelvis is performed from the lung bases to the proximal femora. Images are reviewed in the axial, sagittal, and coronal planes. IV contrast was not administered for this examination as per the front clinician. Note that the examination was performed in suboptimal fashion without oral and IV contrast. The examination is also degraded by large body habitus, and by streak artifact from the body wall abutting the CT gantry. Automated dose control exposure was utilized. CT DOSE: 1585.21 mGy.cm FINDINGS: Lung bases: The patient is status post midline sternotomy. The heart is enlarged and without pericardial effusion. The coronary arteries are densely calcified. A small fat-containing Bochdalek hernia is noted at the left lung base. The lung bases are otherwise clear. Liver: The unenhanced liver is enlarged, measuring 22.7 cm in length. The liver demonstrates diffusely diminished attenuation consistent with hepatic steatosis. There is no intrahepatic biliary ductal dilatation. There are indeterminant calcifications in the hepatic hilum in image #137. Gallbladder: Unremarkable. The common bile duct is normal in caliber. Spleen: Normal in size and attenuation. Pancreas: There is moderate glandular atrophy of the unenhanced pancreas which is grossly unremarkable. Adrenal glands: There is nodular thickening of the adrenal glands. Kidneys: The unenhanced kidneys are normal in size and without hydronephrosis. There are no renal calculi identified. A 1.3 cm hyperdense lesion in the upper pole the right kidney seen on image #192 likely represents a complex/hemorrhagic cyst. Bilateral parapelvic cysts are noted. Abdominal vasculature: The abdominal aorta is normal in course and caliber noting moderate atherosclerotic calcification. Bowel: The small bowel and colon are normal in course and caliber. There is advanced colonic diverticulosis without CT evidence of acute diverticulitis. Mild colonic fecal retention is observed. The appendix is well-visualized and normal. Peritoneum: There is no intraperitoneal free air or abdominal ascites. Lymphadenopathy: None. Pelvic viscera: The prostate gland is enlarged and heterogeneous, measuring 6.4 cm in transverse diameter. There is median lobe hypertrophy. The bladder is normal as visualized. There is a fat-containing left inguinal hernia. Calcified granulomas are noted in the left gluteal soft tissues. Skeletal structures: There is mild to moderate lumbosacral spondylosis. No lytic or blastic lesions are seen. IMPRESSION: 1. There are no acute infectious or inflammatory findings in the abdomen or pelvis. 2. Hepatomegaly and hepatic steatosis. 3. Cardiomegaly. 4. Advanced colonic diverticulosis without CT evidence of acute diverticulitis. 5. Prostatomegaly. 6. Additional findings as above. Electronically signed by: Gregorio Lowe M.D. 11/16/2016 3:33 PM Dictated Date/Time: 11/16/2016 3:24 PM
[2016-11-16] MEDS ORDERED: KETOROLAC TROMETHAMINE 15 MG/ML VIAL IV PRN (16:00)
--- NOTE | 2016-11-16 16:04 | Progress Note ---
Subjective Date of Service: Nov 16, 2016. Subjective Pt evaluation today including: conversation w/ patient, conversation w/ family (), physical exam, lab review, review of studies, conversation w/ cassandra consultant , review of inpatient medication list Pain: suprapubic pain PO Intake: adequate Voiding: incontinence, voiding difficulty (weak stream) discussed patient's recent development of dysuria, suprapubic pain, hematuria, incontinence, fever/chills, vomiting and rigors today he feels better, able to urinate but still with 350cc retention, output reasonable with 650cc on day shift appreciate urology note CT abd/pelvis obtained: no stones, no pyelonephritis, + prostatomegaly Problem List Medical Problems: (1) CAD (coronary artery disease) Status: Chronic (2) Hypertension Status: Chronic (3) Hypokalemia Status: Acute (4) Sepsis Status: Acute (5) UTI (urinary tract infection) Status: Acute Review of Systems Constitutional: + chills, + fatigue, + weakness Abdomen: + pain (suprapubic) Male : + dysuria, + hematuria, + incontinence, + slowing stream, + urinary frequency All Other Systems: Reviewed and Negative Medications Current Inpatient Medications Medications (Trade) Dose Ordered Sig/Shiloh Route Start Time Stop Time Status Last Admin Dose Admin Zolpidem Tartrate (Ambien Tab) 5 mg HSZ PRN PO 11/15/16 22:45 12/15/16 22:44 Ondansetron HCl (Zofran Inj) 4 mg Q6H PRN IV 11/15/16 22:45 12/15/16 22:44 Hydromorphone HCl (Dilaudid Inj) 1 mg Q2H PRN IV 11/15/16 22:45 11/29/16 22:44 11/16/16 04:13 1 MG Hydromorphone HCl 0.5 mg 0.5 mg Q2H PRN IV 11/15/16 22:45 11/29/16 22:44 Ceftriaxone Sodium/Dextrose (Rocephin Inj/ Dextrose Add-[place] 50ML) 50 ml @ 100 mls/hr Q24H IV 11/16/16 20:00 11/26/16 19:59 Tamsulosin HCl (Flomax Cap) 0.4 mg HS PO 11/16/16 21:00 12/16/16 20:59 Lisinopril (Zestril Tab) 20 mg QPM PO 11/16/16 21:00 12/16/16 20:59 Magnesium Hydroxide (Milk Of Magnesia Susp) 30 ml QPM PO 11/16/16 21:00 12/16/16 20:59 Docusate Sodium (coLACE CAP) 100 mg QPM PO 11/16/16 21:00 12/16/16 20:59 Objective Vital Signs Date Time Temp Pulse Resp B/P Pulse Ox O2 Delivery O2 Flow Rate FiO2 11/16/16 12:30 Room Air 11/16/16 11:20 36.6 88 16 92/56 97 11/16/16 08:00 Room Air 11/16/16 07:21 36.7 89 16 120/77 96 Room Air 11/16/16 04:05 Room Air 11/16/16 04:00 36.8 82 20 128/89 100 Room Air 11/15/16 23:30 36.9 79 18 111/70 99 Room Air 11/15/16 22:24 86 16 104/72 99 11/15/16 20:35 98 15 103/65 96 Room Air 11/15/16 19:37 97 Room Air 11/15/16 19:34 114 11/15/16 18:56 37.7 128 20 110/70 94 Room Air Physical Exam General Appearance: no apparent distress, + obese Eyes: normal inspection, EOMI, sclerae normal ENT: normal ENT inspection, hearing grossly normal, pharynx normal Neck: supple, no adenopathy, no JVD, trachea midline Respiratory/Chest: chest non-tender, lungs clear, normal breath sounds, no respiratory distress, no accessory muscle use Cardiovascular: regular rate, rhythm, no edema, no gallop, no JVD, no murmur Abdomen: normal bowel sounds, soft, no organomegaly, + pertinent finding ( suprapubic tenderness to deep palpation) Extremities: normal range of motion, non-tender, normal inspection, no pedal edema, no calf tenderness 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 Urinary tract infection. IMPRESSION: 1. There are no acute infectious or inflammatory findings in the abdomen or pelvis. 2. Hepatomegaly and hepatic steatosis. 3. Cardiomegaly. 4. Advanced colonic diverticulosis without CT evidence of acute diverticulitis. 5. Prostatomegaly. 6. Additional findings as above. Last 24 Hours Test 11/15/16 19:35 11/15/16 19:45 11/15/16 19:49 11/15/16 20:00 White Blood Count 11.50 K/uL Red Blood Count 5.05 M/uL Hemoglobin 15.0 g/dL Hematocrit 42.4 % Mean Corpuscular Volume 84.0 fL Mean Corpuscular Hemoglobin 29.7 pg Mean Corpuscular Hemoglobin Concent 35.4 g/dl Platelet Count 106 K/uL Mean Platelet Volume 10.0 fL Neutrophils (%) (Auto) 90.4 % Lymphocytes (%) (Auto) 3.2 % Monocytes (%) (Auto) 4.9 % Eosinophils (%) (Auto) 0.0 % Basophils (%) (Auto) 0.1 % Neutrophils # (Auto) 10.40 K/uL Lymphocytes # (Auto) 0.37 K/uL Monocytes # (Auto) 0.56 K/uL Eosinophils # (Auto) 0.00 K/uL Basophils # (Auto) 0.01 K/uL RDW Standard Deviation 45.8 fL RDW Coefficient of Variation 14.9 % Immature Granulocyte % (Auto) 1.4 % Immature Granulocyte # (Auto) 0.16 K/uL Prothrombin Time 13.4 SECONDS Prothromb Time International Ratio 1.2 Sodium Level 138 mmol/L Potassium Level 3.1 mmol/L Chloride Level 101 mmol/L Carbon Dioxide Level 27 mmol/L Anion Gap 10.0 mmol/L 21.0 mmol/L Blood Urea Nitrogen 31 mg/dl Creatinine 1.30 mg/dl Est Creatinine Clear Calc Drug Dose 73.4 ml/min Estimated GFR () 68.3 Estimated GFR (Non- 58.9 BUN/Creatinine Ratio 23.5 Random Glucose 152 mg/dl Calcium Level 8.7 mg/dl Magnesium Level 2.4 mg/dl Total Bilirubin 0.6 mg/dl Direct Bilirubin 0.1 mg/dl Aspartate Amino Transf (AST/SGOT) 57 U/L Alanine Aminotransferase (ALT/SGPT) 33 U/L Alkaline Phosphatase 90 U/L Total Creatine Kinase 1611 U/L Creatine Kinase MB 2.5 ng/ml Creatine Kinase MB Ratio 0.2 Troponin I 0.080 ng/ml Total Protein 6.5 gm/dl Albumin 3.0 gm/dl Bedside Lactic Acid Venous 3.31 mmol/L Bedside Hemoglobin 14.3 g/dl Bedside Hematocrit 42 % Bedside Sodium 137 mEq/L Bedside Potassium 3.0 mEq/L Bedside Chloride 96 mEq/L Bedside Total CO2 23 mEq/l Bedside Blood Urea Nitrogen 29 mg/dl Bedside Creatinine 1.3 mg/dl Bedside Glucose (other) 155 mg/dl Bedside Ionized Calcium (Meño) 1.09 mmol/l Urine Color DK YELLOW Urine Appearance CLOUDY Urine pH 5.0 Urine Specific [place] 1.019 Urine Protein 2+ Urine Glucose (UA) NEG Urine Ketones TRACE Urine Occult Blood 3+ Urine Nitrite POS Urine Bilirubin NEG Urine Urobilinogen NEG Urine Leukocyte Esterase MODERATE Urine WBC (Auto) >30 /hpf Urine RBC (Auto) 5-10 /hpf Urine Hyaline Casts (Auto) 1-5 /lpf Urine Epithelial Cells (Auto) 10-20 /lpf Urine Bacteria (Auto) 4+ Urine Pathogenic Casts 1-5 GRANULAR CASTS /lpf Test 11/15/16 23:10 11/16/16 06:45 11/16/16 14:40 Total Creatine Kinase 1668 U/L 1338 U/L 1313 U/L Creatine Kinase MB 4.0 ng/ml 3.8 ng/ml 3.1 ng/ml Creatine Kinase MB Ratio 0.2 0.3 0.2 Troponin I 0.109 ng/ml 0.037 ng/ml < 0.015 ng/ml White Blood Count 10.26 K/uL Red Blood Count 4.66 M/uL Hemoglobin 13.7 g/dL Hematocrit 39.3 % Mean Corpuscular Volume 84.3 fL Mean Corpuscular Hemoglobin 29.4 pg Mean Corpuscular Hemoglobin Concent 34.9 g/dl Platelet Count 85 K/uL Mean Platelet Volume 9.8 fL Neutrophils (%) (Auto) 87.4 % Lymphocytes (%) (Auto) 5.8 % Monocytes (%) (Auto) 6.1 % Eosinophils (%) (Auto) 0.1 % Basophils (%) (Auto) 0.1 % Neutrophils # (Auto) 8.96 K/uL Lymphocytes # (Auto) 0.60 K/uL Monocytes # (Auto) 0.63 K/uL Eosinophils # (Auto) 0.01 K/uL Basophils # (Auto) 0.01 K/uL RDW Standard Deviation 47.0 fL RDW Coefficient of Variation 15.2 % Immature Granulocyte % (Auto) 0.5 % Immature Granulocyte # (Auto) 0.05 K/uL Sodium Level 142 mmol/L Potassium Level 3.6 mmol/L Chloride Level 106 mmol/L Carbon Dioxide Level 29 mmol/L Anion Gap 7.0 mmol/L Blood Urea Nitrogen 24 mg/dl Creatinine 0.94 mg/dl Est Creatinine Clear Calc Drug Dose 100.7 ml/min Estimated GFR () 101.0 Estimated GFR (Non- 87.2 BUN/Creatinine Ratio 25.1 Random Glucose 111 mg/dl Calcium Level 8.2 mg/dl Magnesium Level 2.4 mg/dl Assessment and Plan 61 yo male with history of CAD with CABG, taking aspirin, presented with signs of UTI with fever/chills, rigors, confusion, dysuria, hematuria, incontinence and suprapubic pain - Cystitis with hematuria with mild sepsis: sepsis component resolved, continue Rocephin, initial culture growing E coli, follow up sensitivities appreciate urology consult, will follow up in office CT abdomen/pelvis: no stones, no pyelonephritis, + prostatomegaly look to change to PO antibiotics for 10-14 days depending on sensitivities, follow up with urology - BPH, possible prostatitis: started on Flomax which helped, since prostate enlarged will start Finasteride as well - CAD with h/o CABG: no chest pain or pressure, minimal elevation of troponin likely due to stress of sepsis resume Aspirin tomorrow as long as no further hematuria - HTN: resume DARREN, hold HCTZ - Hypokalemia: resolved, continue to hold HCTZ - DVT prophylaxis: SCD, ambulate, no chemical prophylaxis due to hematuria Plan: f/u sensitivities and change to PO antibiotics, f/u with urology
[2016-11-16 20:00] VITALS: O2SAT 98
[2016-11-16] MEDS ORDERED: CEFTRIAXONE SOD INJ 1 GM in DEXTROSE 5% ADD-VANTAGE 50ML 50 ML IV SCH (20:00)
[2016-11-16] MEDS ORDERED: TAMSULOSIN HCL 0.4 MG CAP PO SCH (21:00)
[2016-11-16] MEDS ORDERED: LISINOPRIL 20 MG TAB PO SCH (21:00)
[2016-11-16] MEDS ORDERED: DOCUSATE SODIUM 100 MG CAP PO SCH (21:00)
[2016-11-16] MEDS ORDERED: MAGNESIUM HYDROXIDE SUSP 30 ML UDC PO SCH (21:00)
[2016-11-17] VITALS: O2SAT 98
[2016-11-17 00:25] VITALS: BP 138/82; PULSE 92; TEMP 37.9; O2SAT 95
[2016-11-17 07:38] LABS: HEMATOCRIT 38.3 % (42-52); MEAN CELL VOLUME 82.5 fL (80-100); MEAN CORPUSCULAR HEMOGLOBIN 28.4 pg (25-34); MEAN CORPUSCULAR HGB CONC 34.5 g/dl (32-36); RED BLOOD COUNT 4.64 M/uL (4.7-6.1)
[2016-11-17 07:45] LABS: MEAN PLATELET VOLUME 10.4 fL (7.4-10.4); PLATELET COUNT 96 K/uL (130-400)
[2016-11-17 07:50] VITALS: BP 160/100; PULSE 90; TEMP 36.9; O2SAT 97
[2016-11-17 08:04] LABS: BASO % 0.3 %; BASO ABS # 0.02 K/uL (0-0.2); COMPLETE YES; EOS % 0.3 %; IG% 0.3 %; LYMPH % 4.5 %; MONO % 10.6 %
[2016-11-17 08:17] LABS: BUN/CREATININE RATIO 32.3 (10-20); CALCIUM 8.3 mg/dl (8.5-10.1); CREATININE 0.9 mg/dl (0.60-1.40); MAGNESIUM 2.4 mg/dl (1.8-2.4); POTASSIUM 3.6 mmol/L (3.5-5.1)
[2016-11-17] MEDS ORDERED: MAGNESIUM HYDROXIDE SUSP 30 ML UDC PO SCH (09:00)
[2016-11-17] MEDS ORDERED: FINASTERIDE 5 MG TAB PO SCH (09:00)
[2016-11-17 09:11] VITALS: O2SAT 97
[2016-11-17] MEDS ORDERED: CEPH500C PO (10:00)
[2016-11-17] MEDS ORDERED: PRS5 PO (10:00)
[2016-11-17] MEDS ORDERED: TAMS0.4C38 PO (10:00)
--- NOTE | 2016-11-17 10:10 | Discharge Instructions ---
Discharge Instructions Date of Service Nov 17, 2016. Admission Reason for Admission: UTI with lower urinary tract symptoms, hematuria Discharge Discharge Diagnosis / Problem: cystitis with hematuria, enlarged prostate with LUTS Discharge Goals Goal(s): Improve function, Improve disease control, Diagnostic testing (follow up with urology, possible cystoscopy) Activity Recommendations Activity Limitations: resume your previous activity Lifting Limitations: none Exercise/Sports Limitations: as tolerated May Resume Sexual Activity: when tolerated Shower/Bathe: no limitations . Instructions / Follow-Up Instructions / Follow-Up Medications: - KEFLEX: take 500mg three times a day for 12 more days to complete 14 days of therapy for urinary tract infection, culture grew E coli that was sensitive to Keflex - FLOMAX: relaxes the prostate to allow you to empty your bladder, take once a day - FINASTERIDE: CT scan of the pelvis showed that prostate enlarged, take once a day to help shrink prostate resume all other prior medications Cystitis with hematuria, likely caused by enlarged prostate, incomplete emptying : urine culture growing E coli that is sensitive to all antibiotics. Will discharge home on Keflex, please complete 12 more days. You may need a longer course but would ask urology to determine length of treatment. You had a CT scan of the abdomen and pelvis that did not show any kidney stones or pyelonephritis (kidney infection). The scan did show that your prostate is enlarged. Started on both Flomax and Finasteride to help relax and then shrink prostate over time. FOLLOW UP - you were seen by Dr. Wilson while admitted, she wanted to see you in follow up at the [place] office in 1-2 weeks - if you would like to see [facility] urology, please call [phone] on Saturday to request a follow up in 1-2 weeks with any of their providers - please call for follow up with Dr. Church this week to go over details of hospitalization, he will receive copy of the discharge summary Current Hospital Diet Patient's current hospital diet: Regular Diet Discharge Diet Recommended Diet: AHA Diet (Heart Healthy) Procedures Procedures Performed: CT scan abdomen/pelvis: no kidney stones, no urinary obstruction, positive for prostatomegaly (enlarged prostate) Pending Studies Studies pending at discharge: no Laboratory Results Last Resulted CBC 11/17/16 07:00 Red Blood Count 4.64, Mean Corpuscular Volume 82.5, Mean Corpuscular Hemoglobin 28.4, Mean Corpuscular Hemoglobin Concent 34.5, Mean Platelet Volume 10.4, Neutrophils (%) (Auto) 84.0, Lymphocytes (%) (Auto) 4.5, Monocytes (%) (Auto) 10.6, Eosinophils (%) (Auto) 0.3, Basophils (%) (Auto) 0.3, Neutrophils # (Auto ) 5.63, Lymphocytes # (Auto) 0.30, Monocytes # (Auto) 0.71, Eosinophils # (Auto ) 0.02, Basophils # (Auto) 0.02 Last Resulted BMP 11/17/16 07:00 Date/Time Source Procedure Growth Status 11/15/16 19:45 Blood Blood Culture - Preliminary NO GROWTH TO DATE. Resulted 11/15/16 20:00 Urine , Clean Catch Urine Culture - Final Escherichia Coli Complete Medical Emergencies . Who to Call and When: Medical Emergencies: If at any time you feel your situation is an emergency, please call 911 immediately. . Non-Emergent Contact Non-Emergency issues call your: Primary Care Provider Call Non-Emergent contact if: you have a fever, you have any medication questions . . "Provider Documentation" section prepared by Salvatore Doss. VTE Core Measure Inpt VTE Proph given/why not?: SCD's [place] Drug Monitoring Program Search Results: no issues identified
[2016-11-17 10:12] VITALS: BP 160/100; PULSE 90; TEMP 36.9; O2SAT 97
[2016-11-17 10:36] VITALS: BP 135/86; PULSE 101
--- NOTE | 2016-11-17 10:45 | Discharge Summary ---
Discharge Summary Date of Service Nov 17, 2016. Discharge Summary Admission Date: Nov 15, 2016 at 22:36 Discharge Date: Nov 17, 2016 Discharge Disposition: Home Principal Diagnosis: Cystitis with hematuria Problems/Secondary Diagnoses: BPH with LUTS CAD with h/o CABG HTN Procedures: none Consultations: Urology - Dr. Wilson Medication Reconciliation New Medications: Cephalexin Monohydrate (Keflex) 500 Mg Cap 500 MG PO TID, #36 CAP Finasteride (Finasteride) 5 Mg Tab 5 MG PO DAILY for 30 Days, #30 TABS 0 Refills Tamsulosin Hcl (Flomax) 0.4 Mg Cap 0.4 MG PO DAILY for 30 Days, #30 CAP Continued Medications: Aspirin (Aspirin) 325 Mg Ectab 1 TAB PO DAILY for 14 Days Docusate Sodium (Stool Softener) 100 Mg Tab 100 MG PO QAM PRN for PRN Famotidine (Pepcid) 20 Mg Tab 20 MG PO DAILY PRN for Indigestion, TAB Fosinopril Sodium (Monopril) 20 Mg Tab 20 MG PO QPM, TAB Hydrochlorothiazide (Hctz) 25 Mg Tab 25 MG PO HS, TAB Magnesium Hydroxide (Milk Of Magnesia) 30 Ml Susp 5 ML PO PRN, ML Naproxen (Aleve) 220 Mg Tab 220 MG PO QPM PRN for Pain, TAB Oxycodone HCl (Oxycodone HCl) 5 Mg Tab 5-10 MG PO Q4H PRN for prn, #60 [Potassium] () 99 MG PO HS Discharge Exam Patient feeling much, much better today. Urinating much easier, completely emptying bladder, urine clear, no blood, no dysuria. Eating well. Less suprapubic pain. Had low grade temperature this morning but he did not feel febrile, no chills. Discussed results of CT scan with enlarged prostate. Discussed plans for discharge in detail with Keflex for UTI and Flomax and Finasteride for enlarged prostate. Discussed follow up with urology, he would prefer to follow up with [facility], made referral. Review of Systems: Constitutional: No chills, No fatigue, No fever, No problem reported, No sweats, No weakness, No weight loss Eyes: No diplopia, No discharge, No eye pain, No problem reported, No redness, No worsening of vision ENT: No dental problems, No hearing loss, No nasal symptoms, No problem reported, No sore throat, No tinnitus, No trouble swallowing, No unusual epistaxis Respiratory: No cough, No dyspnea at rest, No dyspnea on exertion, No hemoptysis, No problem reported, No shortness of breath, No sputum, No wheezing Cardiovascular: No PND, No chest pain, No claudication, No edema, No orthopnea, No palpitations, No problem reported Abdomen: + pain (mild suprapubic pain), No GI bleeding, No constipation, No diarrhea, No nausea, No problem reported, No vomiting Musculoskeletal: No calf pain, No joint pain, No muscle pain, No problem reported, No swelling Genitourinary - Male: No dysuria, No hematuria, No penile discharge, No urinary frequency, No urinary hesitancy, No urinary incontinence, No urinary retention, No urinary urgency Neurologic: No balance problems, No memory loss, No numbness/tingling, No paralysis, No problem reported, No vertigo, No weakness Psychiatric: No anhedonism, No anxiety, No depression symptoms, No insomnia , No problem reported, No substance abuse Endocrine: No excessive thirst, No excessive urination, No fatigue, No problem reported Hematologic / Lymphatic: No abnormal bleeding/bruising, No clotting problems , No night sweats, No problem reported, No swollen lymph nodes Integumentary: No bleeding, No color change, No itch, No new/changing skin lesions, No problem reported, No rash Physical Exam: General Appearance: no apparent distress, + obese Eyes: normal inspection, EOMI, sclerae normal ENT: normal ENT inspection, hearing grossly normal, pharynx normal Neck: supple, no adenopathy, no JVD, trachea midline Respiratory/Chest: chest non-tender, lungs clear, normal breath sounds, no respiratory distress, no accessory muscle use Cardiovascular: regular rate, rhythm, no edema, no gallop, no JVD, no murmur , normal peripheral pulses Abdomen / GI: normal bowel sounds, soft, no organomegaly, + tenderness ( minimal tenderness suprapubic) Extremities: normal inspection, no calf tenderness, normal capillary refill , no pedal edema, normal range of motion, pelvis stable 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, no motor/sensory deficits , alert, normal mood/affect, normal reflexes, oriented x 3 Skin: normal color, warm/dry, no rash Lymphatic: no adenopathy Hospital Course 61 yo male with history of CAD with CABG, taking aspirin, presented with signs of UTI with fever/chills, rigors, confusion, dysuria, hematuria, incontinence and suprapubic pain - Cystitis with hematuria with mild sepsis: sepsis component resolved, treated with Rocephin, initial culture growing E coli, loving sensitive appreciate urology consult, recommended 14 days of antibiotics and follow up in office CT abdomen/pelvis: no stones, no pyelonephritis, + prostatomegaly d/c on Keflex 500mg TID x 12 more days for 14 days total treatment patient would prefer to follow up with [facility] urology, referral placed - Enlarged prostate with LUTS: started on Flomax which helped, since prostate enlarged will start Finasteride as well follow up with urology for further recommendations - CAD with h/o CABG: no chest pain or pressure, minimal elevation of troponin likely due to stress of sepsis resume Aspirin on discharge, there has been no hematuria since admission - HTN: resume DARREN and HCTZ - Hypokalemia: resolved, continue supplementation - DVT prophylaxis: SCD, ambulate, no chemical prophylaxis due to hematuria prior to admission Total Time Spent: Greater than 30 minutes This includes examination of the patient, discharge planning, medication reconciliation, and communication with other providers. Discharge Instructions Please refer to the electronic Patient Visit Report (Discharge Instructions) for additional information. Follow-Up Dr. Church in one week [facility], referral placed Additional Copies To Nory Church M.D.; Cornelio Thomas M.D.
--- NOTE | 2016-11-17 12:05 | Progress Note ---
Subjective Date of Service: Nov 17, 2016. Subjective Pt evaluation today including: conversation w/ patient Pt feeling better. Still has some mild dysuria but improving. No fevers.. No chills. PVR: 350cc CT scan shows enlarged prostate. No abscess. No stones. Urine Cx: Vilchis sensitive E. Coli Problem List Medical Problems: (1) CAD (coronary artery disease) Status: Chronic (2) Hypertension Status: Chronic (3) Hypokalemia Status: Acute (4) Sepsis Status: Acute (5) UTI (urinary tract infection) Status: Acute Review of Systems Constitutional: No chills, No fever Abdomen: No pain Male : + dysuria All Other Systems: Reviewed and Negative Objective Vital Signs Date Time Temp Pulse Resp B/P Pulse Ox O2 Delivery O2 Flow Rate FiO2 11/17/16 10:36 101 16 135/86 11/17/16 10:12 36.9 90 20 97 Room Air 11/17/16 09:11 97 Room Air 11/17/16 08:15 Room Air 11/17/16 07:50 36.9 90 20 160/100 97 Room Air 11/17/16 00:25 37.9 92 20 138/82 95 Room Air 11/17/16 00:00 98 Room Air 11/16/16 20:00 98 Room Air 11/16/16 16:07 Room Air 11/16/16 15:30 37.3 106 19 123/75 98 Room Air 11/16/16 12:30 Room Air Physical Exam General Appearance: WD/WN Eyes: normal inspection Respiratory/Chest: chest non-tender Cardiovascular: regular rate, rhythm Skin: normal color Lymphatic: no adenopathy Laboratory Results Last 24 Hours Test 11/16/16 14:40 11/17/16 07:00 Total Creatine Kinase 1313 U/L Creatine Kinase MB 3.1 ng/ml Creatine Kinase MB Ratio 0.2 Troponin I < 0.015 ng/ml White Blood Count 6.70 K/uL Red Blood Count 4.64 M/uL Hemoglobin 13.2 g/dL Hematocrit 38.3 % Mean Corpuscular Volume 82.5 fL Mean Corpuscular Hemoglobin 28.4 pg Mean Corpuscular Hemoglobin Concent 34.5 g/dl Platelet Count 96 K/uL Mean Platelet Volume 10.4 fL Neutrophils (%) (Auto) 84.0 % Lymphocytes (%) (Auto) 4.5 % Monocytes (%) (Auto) 10.6 % Eosinophils (%) (Auto) 0.3 % Basophils (%) (Auto) 0.3 % Neutrophils # (Auto) 5.63 K/uL Lymphocytes # (Auto) 0.30 K/uL Monocytes # (Auto) 0.71 K/uL Eosinophils # (Auto) 0.02 K/uL Basophils # (Auto) 0.02 K/uL RDW Standard Deviation 46.1 fL RDW Coefficient of Variation 15.2 % Immature Granulocyte % (Auto) 0.3 % Immature Granulocyte # (Auto) 0.02 K/uL Sodium Level 137 mmol/L Potassium Level 3.6 mmol/L Chloride Level 103 mmol/L Carbon Dioxide Level 23 mmol/L Anion Gap 11.0 mmol/L Blood Urea Nitrogen 29 mg/dl Creatinine 0.90 mg/dl Est Creatinine Clear Calc Drug Dose 105.1 ml/min Estimated GFR () 106.5 Estimated GFR (Non- 91.9 BUN/Creatinine Ratio 32.3 Random Glucose 111 mg/dl Calcium Level 8.3 mg/dl Magnesium Level 2.4 mg/dl Assessment and Plan (1) Cystitis with hematuria (2) BPH with obstruction/lower urinary tract symptoms Feeling better. Voiding sxs improved. Urine cx shows E. Coli. OK to switch to PO abx. F/U as outpt.
== END 2016-11-17 11:29 | disposition home or self-care (01) | DRG 690 ==
LOC: ENRESERVDT → ENRESERVTM → C.EDB 18:45 → C.MED 22:36
PROVIDERS: ADMIT Hospitalist; ATTEND Internal Medicine
DX: N30.91 Cystitis, unspecified with hematuria (principal); N40.1 Benign prostatic hyperplasia with lower urinary tract symptoms; A49.8 Other bacterial infections of unspecified site; I25.10 Atherosclerotic heart disease of native coronary artery without angina pectoris; I10 Essential (primary) hypertension; E87.6 Hypokalemia; Z79.82 Long term (current) use of aspirin